=== PATIENT | male | born 1935 | race Two or more races ===

== ENCOUNTER 2016-11-30 13:02 | Inpatient (IN) | payer MEDICARE, BC ==
[2016-11-30 14:45] LABS: Basophils % (A) 1 %; CH 27.4; CHCM 31.6; Eosinophils # (A) 0.1 k/uL (0-0.7); Eosinophils % (A) 2 %; HDW 2.43; Luc # (Auto) 0.08; Luc % (Auto) 2; Lymphocytes # (A) 0.6 k/uL (1.0-4.8); Lymphocytes % (A) 12 %; MCHC 30.9 g/dL (31.0-37.0); MCV 87.3 fL (80.0-100.0); Mean Platelet Volume 8.8; Monocytes # (A) 0.3 k/uL (0-1.0); Monocytes % (A) 6 %; Neutrophils # (A) 3.9 k/uL (1.3-7.7); Neutrophils % (A) 79 %; RBC 4.81 m/uL (4.30-5.90); RDW 14.6 % (11.5-15.5); WBC (Perox) 4.91
[2016-11-30 14:57] LABS: Anion Gap 12 mmol/L; Blood Urea Nitrogen 23 mg/dL (9-20); Carbon Dioxide 27 mmol/L (22-30); Chloride 105 mmol/L (98-107); Glucose 88 mg/dL (74-99); Potassium 4.2 mmol/L (3.5-5.1); Sodium 144 mmol/L (137-145)
[2016-11-30 14:58] LABS: ALT 30 U/L (21-72); AST 28 U/L (17-59); Alkaline Phosphatase 82 U/L (38-126); Calcium 10.4 mg/dL (8.4-10.2); Non-African American GFR(MDRD) >60 (>60 ml/min/1.73 sqM); Total Bilirubin 0.9 mg/dL (0.2-1.3); Total Protein 6.9 g/dL (6.3-8.2)
[2016-11-30 15:50] LABS: Creatine Kinase MB 4.2 ng/mL (0.0-2.4); Troponin I 0.038 ng/mL (0.000-0.034)
[2016-11-30 15:59] LABS: Bacteria,Urine Rare /hpf; Mucus,Urine Few /hpf; Particle Count 111300; RBC,Urine >182 /hpf (0-5); WBC,Urine >182 /hpf (0-5)
[2016-11-30 16:02] LABS: Appearance,Urine Bloody (Clear)
[2016-11-30 16:03] LABS: UA Billing (MACRO vs. MICRO) MICRO
[2016-11-30] MEDS ORDERED: LEVOFLOXACIN 750MG-D5W PMX 750 MG in DEXTROSE/WATER 1 150ML.BAG IVPB STA (16:25)
[2016-11-30] MEDS ORDERED: HYDROcodone/APAP 5-325MG 1 EACH TAB PO PRN (16:33)
[2016-11-30] MEDS ORDERED: NALOXONE 0.4 MG/ML 1 ML VIAL IV PRN (16:33)
[2016-11-30] MEDS ORDERED: ACETAMINOPHEN TAB 325 MG TAB PO PRN (16:33)
--- NOTE | 2016-11-30 16:39 | ED ---
General Adult HPI - General Chief complaint: GI Bleed Stated complaint: Blood in urine Time Seen by Provider: 11/30/16 14:32 Source: family Mode of arrival: wheelchair Limitations: altered mental status (Dementia) - History of Present Illness Initial comments: This patient is an 81-year-old man brought to be evaluated for hematuria. The patient's family states that they started noticing that after the patient had use the bathroom there was blood in the commode. There does not appear to be bloody bowel movements, it did appear to be related to urination. There was an episode in which the patient had a bowel movement however and probably urinated at same time so there was some blood present there. The patient has some underlying dementia and is not able to give any history. He states that he is feeling well Onset/Timin -: hour(s) - Related Data Home Medications Medication Instructions Recorded Confirmed Donepezil [Aricept] 10 mg PO BID 07/25/14 11/30/16 QUEtiapine [SEROquel] 25 mg PO BID 09/13/14 11/30/16 Aspirin 325 mg PO DAILY 11/30/16 11/30/16 Cholecalciferol [Vitamin D3] 1,000 unit PO DAILY 11/30/16 11/30/16 Dronabinol [Marinol] 2.5 mg PO AC-BID 11/30/16 11/30/16 Isosorbide Mononitrate ER [Imdur] 60 mg PO QAM 11/30/16 11/30/16 Mirtazapine [Remeron] 30 mg PO PC-SUPPER 11/30/16 11/30/16 Allergies Allergy/AdvReac Type Severity Reaction Status Date / Time No Known Allergies Allergy Verified 11/30/16 14:15 Review of Systems ROS Statement: Those systems with pertinent positive or pertinent negative responses have been documented in the HPI. ROS Other: All systems not noted in ROS Statement are negative. Limitations: ROS unobtainable due to patients medical condition (Dementia) Constitutional: Denies: fever Respiratory: Denies: cough, dyspnea Cardiovascular: Denies: chest pain, syncope Gastrointestinal: Denies: abdominal pain Genitourinary: Reports: frequency, hematuria Musculoskeletal: Denies: back pain Neurological: Denies: headache Past Medical History Past Medical History: Coronary Artery Disease (CAD), Chest Pain / Angina, Dementia, Diabetes Mellitus, Hyperlipidemia, Hypertension, Renal Disease Additional Past Medical History / Comment(s): PT HX OBTAINED THRU PT/MED RECORD AND DAUGHTER-DANNY BONILLA WHO IS ALSO PT'S POA. PT/HOWARD STATE PT HAD THORACIC BACK PAIN ALL NITE WITH PT AWAKENING HOWARD AT 0300 AT WHICH TIME HE WAS GIVEN A NITRO SL AND HOWARD DROVE HIM TO [facility] ER. EN ROUTE PT STATED NTG HAD HELPED HIS BACK PAIN. HOWARD STATES PT NEVER C/O NAUSEA AND HAD NO SWEATINESS OR DID THE PT STATE PAIN RADIATED. PT LIVES WITH HIS HOWARD DELGADO. HE HAS MILD DEMENTIA. HE HAD TONSIL CANCER TX WITH RADIATION AT [facility] 3-4 YRS AGO. HE HAS CHRONIC RENAL DX. HE HAS THROMBOCYTOPENIA. PT WAS ADMITTED TO [facility] ON 07/25/14 WITH ANGINA. HE IS FOLLOWED BY DR. SIMS AND DR. QUINONES. History of Any Multi-Drug Resistant Organisms: None Reported Past Surgical History: Coronary Bypass/CABG, Heart Catheterization With Stent Additional Past Surgical History / Comment(s): CATARACT REMOVAL 2013. CABG IN APRIL 1995. PTCA WITH STENTING OF MAJOR DIAGONAL IN 2009. Past Anesthesia/Blood Transfusion Reactions: No Reported Reaction Additional Past Anesthesia/Blood Transfusion Reaction / Comment(s): NEVER RECIEVED BLOOD. Date of Last Stent Placement:: 2009 Past Psychological History: No Psychological Hx Reported Additional Psychological History / Comment(s): PT'S MAY 2014 SO PT NOW LIVES WITH HOWARD BONILLA. HE IS ACTIVE AND SPENDS ALOT OF TIME WITH FRIENDS. Smoking Status: Never smoker Past Alcohol Use History: None Reported Past Drug Use History: None Reported - Past Family History Father Family Medical History: No Reported History Additional Family Medical History / Comment(s): FATHER IN HIS 90'S Mother Family Medical History: Dementia Additional Family Medical History / Comment(s): MOTHER IN HER 80'S General Exam General appearance: alert, in no apparent distress Head exam: Present: atraumatic, normocephalic Eye exam: Present: normal appearance. Absent: scleral icterus, conjunctival injection ENT exam: Present: normal oropharynx Neck exam: Present: normal inspection, full ROM Respiratory exam: Present: normal lung sounds bilaterally. Absent: respiratory distress, wheezes, rales, rhonchi, stridor Cardiovascular Exam: Present: regular rate, normal rhythm, normal heart sounds. Absent: systolic murmur, diastolic murmur, rubs, gallop GI/Abdominal exam: Present: soft. Absent: distended, tenderness, guarding, rebound, mass Extremities exam: Present: normal inspection, normal capillary refill. Absent: pedal edema, calf tenderness Back exam: Present: normal inspection. Absent: CVA tenderness (R), CVA tenderness (L) Neurological exam: Present: alert. Absent: oriented X3 Skin exam: Present: warm, dry, intact, normal color. Absent: rash, cyanosis, diaphoretic, erythema, petechiae, pallor, mottled Course Vital Signs 11/30/16 11/30/16 11/30/16 13:44 14:20 17:17 Temperature 98.3 F 97.6 F Pulse Rate 68 61 72 Respiratory 18 16 16 Rate Blood Pressure 118/93 128/84 161/93 O2 Sat by Pulse 96 98 96 Oximetry EKG Findings - EKG Results: EKG: interpreted by ERMD, sinus rhythm - Blocks, [place], Hypertrophy, ST Abn: AV and intraventricular conduction: 1 AV block Repolarization changes or abnormalities: ST or T wave suggestive of ischemia Medical Decision Making - Medical Decision Making This patient is an 81-year-old man with gross hematuria. Patient be covered with antibiotics and admitted. He is pending an ultrasound of the kidneys or bladder. - Lab Data Result diagrams: 11/30/16 14:20 11/30/16 14:20 Lab Results 11/30/16 11/30/16 11/30/16 Range/Units 14:20 14:20 14:20 WBC 5.0 (3.8-10.6) k/uL RBC 4.81 (4.30-5.90) m/uL Hgb 13.0 (13.0-17.5) gm/dL Hct 42.0 (39.0-53.0) % MCV 87.3 (80.0-100.0) fL MCH 27.0 (25.0-35.0) pg MCHC 30.9 L (31.0-37.0) g/dL RDW 14.6 (11.5-15.5) % Plt Count 59 L (150-450) k/uL Neutrophils % 79 % Lymphocytes % 12 % Monocytes % 6 % Eosinophils % 2 % Basophils % 1 % Neutrophils # 3.9 (1.3-7.7) k/uL Lymphocytes # 0.6 L (1.0-4.8) k/uL Monocytes # 0.3 (0-1.0) k/uL Eosinophils # 0.1 (0-0.7) k/uL Basophils # 0.0 (0-0.2) k/uL APTT (22.0-30.0) sec Sodium 144 (137-145) mmol/L Potassium 4.2 (3.5-5.1) mmol/L Chloride 105 (98-107) mmol/L Carbon Dioxide 27 (22-30) mmol/L Anion Gap 12 mmol/L BUN 23 H (9-20) mg/dL Creatinine 1.14 (0.66-1.25) mg/dL Est GFR (MDRD) Af Amer >60 (>60 ml/min/1.73 sqM) Est GFR (MDRD) Non-Af >60 (>60 ml/min/1.73 sqM) Glucose 88 (74-99) mg/dL Calcium 10.4 H (8.4-10.2) mg/dL Total Bilirubin 0.9 (0.2-1.3) mg/dL AST 28 (17-59) U/L ALT 30 (21-72) U/L Alkaline Phosphatase 82 (38-126) U/L Total Creatine Kinase 45 L (55-170) U/L CK-MB (CK-2) 4.2 H* (0.0-2.4) ng/mL CK-MB (CK-2) Rel Index 9.3 Troponin I 0.038 H* (0.000-0.034) ng/mL Total Protein 6.9 (6.3-8.2) g/dL Albumin 3.9 (3.5-5.0) g/dL Urine Color Urine Appearance (Clear) Urine RBC (0-5) /hpf Urine Red Cell Clumps (None) /hpf Urine WBC (0-5) /hpf Urine Bacteria (None) /hpf Urine Mucus (None) /hpf Urine Yeast (Budding) (None) /hpf Blood Type Blood Type Recheck Antibody Screen Spec Expiration Date 11/30/16 11/30/16 11/30/16 Range/Units 14:20 14:20 15:35 WBC (3.8-10.6) k/uL RBC (4.30-5.90) m/uL Hgb (13.0-17.5) gm/dL Hct (39.0-53.0) % MCV (80.0-100.0) fL MCH (25.0-35.0) pg MCHC (31.0-37.0) g/dL RDW (11.5-15.5) % Plt Count (150-450) k/uL Neutrophils % % Lymphocytes % % Monocytes % % Eosinophils % % Basophils % % Neutrophils # (1.3-7.7) k/uL Lymphocytes # (1.0-4.8) k/uL Monocytes # (0-1.0) k/uL Eosinophils # (0-0.7) k/uL Basophils # (0-0.2) k/uL APTT 26.7 (22.0-30.0) sec Sodium (137-145) mmol/L Potassium (3.5-5.1) mmol/L Chloride (98-107) mmol/L Carbon Dioxide (22-30) mmol/L Anion Gap mmol/L BUN (9-20) mg/dL Creatinine (0.66-1.25) mg/dL Est GFR (MDRD) Af Amer (>60 ml/min/1.73 sqM) Est GFR (MDRD) Non-Af (>60 ml/min/1.73 sqM) Glucose (74-99) mg/dL Calcium (8.4-10.2) mg/dL Total Bilirubin (0.2-1.3) mg/dL AST (17-59) U/L ALT (21-72) U/L Alkaline Phosphatase (38-126) U/L Total Creatine Kinase (55-170) U/L CK-MB (CK-2) (0.0-2.4) ng/mL CK-MB (CK-2) Rel Index Troponin I (0.000-0.034) ng/mL Total Protein (6.3-8.2) g/dL Albumin (3.5-5.0) g/dL Urine Color Brown Urine Appearance Bloody (Clear) Urine RBC >182 H (0-5) /hpf Urine Red Cell Clumps Many H (None) /hpf Urine WBC >182 H (0-5) /hpf Urine Bacteria Rare H (None) /hpf Urine Mucus Few H (None) /hpf Urine Yeast (Budding) Many H (None) /hpf Blood Type O Positive Blood Type Recheck No Antibody Screen NEGATIVE Spec Expiration Date 12/03/20162319 Disposition Clinical Impression: Hematuria, Urinary tract infection Disposition: ADMITTED IP TO THIS HOSP Condition: Poor
[2016-11-30] MEDS: SODIUM CHLORIDE 0.9% 1,000 ML IV SCH (17:16)
[2016-11-30] MEDS ORDERED: DRONABINOL 2.5 MG CAPSULE PO SCH (17:30)
--- NOTE | 2016-11-30 18:05 | US ---
EXAMINATION TYPE: US kidneys/renal and bladder DATE OF EXAM: 11/30/2016 5:40 PM COMPARISON: NONE CLINICAL HISTORY: gross hematuria, UTI. EXAM MEASUREMENTS: Right Kidney: 9.9 x 5.0 x 4.1cm Left Kidney: 9.1 x 7.9 x 4.6cm Post Void Residual Volume: NA as EC patient ANATOMY: TECHNOLOGIST IMPRESSION: Right Kidney: No hydronephrosis or masses seen Left Kidney: superior pole has possible complex cyst (posterior enhancement) = 1.8 x 1.7 x 2.3cm. Abn ormally dilated renal pelvis and ureter with hyperechoic focus (calcification) mid ureter = 0.6 x 0.6 x 0.3cm Bladder: enlarged prostate noted posterior to bladder Bilateral Jets seen: yes IMPRESSION: There is moderate left-sided hydronephrosis and proximal hydroureter. There is a possible 5 mm calcul us in the proximal left ureter. No evidence of obstruction on the right side. No solid renal mass. Th ere is a 2 cm cortical cyst on the upper pole left kidney. Bilateral ureteral jets are seen in the ur inary bladder and therefore I do not suspect acute obstruction. There is also no significant renal co rtical atrophy.
[2016-11-30] MEDS: MIRTAZAPINE 15 MG TAB PO SCH (20:36)
[2016-11-30] MEDS ORDERED: QUEtiapine 25 MG TAB PO SCH (21:00)
[2016-11-30] MEDS ORDERED: DONEPEZIL 10 MG TAB PO SCH (21:00)
[2016-12-01 06:09] LABS: Basophils % (A) 0 %; CH 27.6; CHCM 31.9; Eosinophils % (A) 0 %; HCT 38.7 % (39.0-53.0); HDW 2.43; HGB 11.8 gm/dL (13.0-17.5); Luc # (Auto) 0.09; Luc % (Auto) 1; Lymphocytes # (A) 0.5 k/uL (1.0-4.8); Lymphocytes % (A) 5 %; MCH 26.5 pg (25.0-35.0); MCHC 30.5 g/dL (31.0-37.0); MCV 86.8 fL (80.0-100.0); Mean Platelet Volume 8.2; Monocytes # (A) 0.4 k/uL (0-1.0); Monocytes % (A) 4 %; Neutrophils # (A) 8.8 k/uL (1.3-7.7); Neutrophils % (A) 89 %; RBC 4.46 m/uL (4.30-5.90); RDW 14.7 % (11.5-15.5); WBC 9.8 k/uL (3.8-10.6); WBC (Perox) 10.36
[2016-12-01 06:14] LABS: ALT 32 U/L (21-72); AST 23 U/L (17-59); Alkaline Phosphatase 65 U/L (38-126); Anion Gap 11 mmol/L; Blood Urea Nitrogen 20 mg/dL (9-20); Calcium 9.7 mg/dL (8.4-10.2); Carbon Dioxide 24 mmol/L (22-30); Chloride 107 mmol/L (98-107); Glucose 88 mg/dL (74-99); Non-African American GFR(MDRD) >60 (>60 ml/min/1.73 sqM); Potassium 4.4 mmol/L (3.5-5.1); Sodium 142 mmol/L (137-145); Total Bilirubin 0.9 mg/dL (0.2-1.3)
[2016-12-01] MEDS: DRONABINOL 2.5 MG CAP PO SCH ×2 (06:51→17:00)
[2016-12-01] MEDS: SODIUM CHLORIDE 0.9% 1,000 ML IV SCH ×4 (06:57→21:20)
[2016-12-01] MEDS: DONEPEZIL 10 MG TAB PO SCH (08:59)
[2016-12-01] MEDS: CHOLECALCIFEROL 1,000 UNIT TAB PO SCH (08:59)
[2016-12-01] MEDS: ISOSORBIDE MONONITRATE ER 60 MG TAB.ER.24H PO SCH (11:14)
[2016-12-01] MEDS: PANTOPRAZOLE 40 MG TABLET PO SCH (14:14)
--- NOTE | 2016-12-01 16:38 | HP ---
DATE OF ADMISSION: 11/30/2016 PRESENTING COMPLAINT: Weak, tired, hematuria. HISTORY OF PRESENTING COMPLAINT: An 81-year-old patient of Dr. 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 The patient does get pain in his throat, was recently seen by Dr. Amaya per the family. The 2 daughters at the bedside. Nothing really was found. Patient now admitted. Patient's appetite is gone down, losing weight. Patient also noticed to have blood in the stool and blood in his urine. The patient pretty much likes to be in bed, has to be motivated. Most of the history is obtained by the 2 daughters at the bedside. Here in the hospital, the patient states actually he likes the food. REVIEW OF SYSTEMS: CONSTITUTIONAL: Loss of appetite. Weight loss. HEENT: Decreased hearing. RESPIRATORY: None. CARDIOVASCULAR: No chest pain. GASTROINTESTINAL: No abdominal pain, but some blood in the stool. DERMATOLOGICAL: None. HEMATOLOGICAL: None. LYMPHATICS: None. PSYCHIATRY: Forgetful. NEUROLOGICAL: Generalized weakness. GENITOURINARY: Blood in the urine. Past medical history of coronary artery disease with bypass, stent, dementia, hyperlipidemia, hypertension, ITP, tonsillar cancer. PAST SURGICAL HISTORY: Coronary artery bypass, cardiac cath with stent, CABG in 1994, PTCA with stent to the diagonal in 2009. SOCIAL HISTORY: The patient is a . Lives with daughter Kim Baumann. No smoking. No alcohol. FAMILY HISTORY: Reviewed, noncontributory to the presentation. HOME MEDICATIONS: 1. Seroquel 25 mg q.h.s. 2. Zocor 20 mg q.h.s. 3. Aricept 10 mg p.o. daily. 4. Vitamin D3, 1000 units p.o. daily. 5. Aspirin 325 p.o. daily. 6. Imdur ER 60 mg p.o. daily. 7. Marinol 2.5 p.o. b.i.d. 8. Remeron 30 mg before supper. ALLERGIES: None. On examination, temperature 97.6, pulse 72, respirations 16, blood pressure 161/93, pulse ox 96% on room air. GENERAL APPEARANCE: Average build, sitting up, awake. EYES: Pupils equal. Conjunctivae pale. HEENT: External appearance of nose and ears normal. Oral cavity normal. NECK: JVD not raised. Mass not palpable. RESPIRATORY: Effort normal. LUNGS: Slightly decreased breath sounds. CARDIOVASCULAR: First and second sounds normal. No edema. ABDOMEN: Soft, nontender. Liver and spleen not palpable. LYMPHATIC: No lymph node palpable in neck or axillae. PSYCHIATRY: Awake, answering simple questions. Mood and affect normal. NEUROLOGICAL: Pupils equal. Cranial nerves grossly intact. MUSCULOSKELETAL: Evidence of osteoarthritis. INVESTIGATIONS: White count 5, hemoglobin 13, platelets 59. Potassium 4.2, BUN 23, creatinine 1.14. Troponin 0.038, 0.043. UA showing quite a bit of WBC and RBC. ASSESSMENT: 1. Hematuria in a patient who has a questionable history of kidney stones. May have underlying urinary tract infection. 2. Gastrointestinal bleed in a patient who is on a heavy dose of aspirin and low platelets, could be an upper gastrointestinal bleed. 3. Coronary artery disease with prior history of stent and CABG. 4. Alzheimer's dementia, late onset, no evidence of psychosis. 5. Hyperlipidemia. 6. Essential hypertension. 7. Chronic idiopathic thrombocytopenic purpura. 8. Troponin leak. PLAN: Patient is put on Levaquin. Home medications are resumed. Aspirin has been held. I will put the patient on PPI. Will get a consultation from GI and Urology. Care was discussed in detail with the 2 daughters at the bedside.
[2016-12-01] MEDS: LEVOFLOXACIN 500MG-D5W PMX 500 MG in DEXTROSE/WATER 1 100ML.BAG IVPB SCH (16:59)
--- NOTE | 2016-12-01 17:07 | HP ---
DATE OF ADMISSION: 11/30/2016 PRESENTING COMPLAINT: Short of breath. HISTORY OF PRESENTING COMPLAINT: This is pleasant 81-year-old patient who was transferred here from [facility] by Dr. Puente. Patient has rather extensive medical history. Patient 2 weeks ago presented to the ER there, diagnosed with pneumonia and prerenal azotemia. Patient was put on doxycycline and discharged from the ER. Patient presented with a cough. Some sputum production going on for 2 to 3 weeks. Decreased appetite, weight loss. Hence, the patient was admitted. Patient was found to have right sided pleural effusion that was worsening; hence patient being transferred down here. There is also some blood in the stools. Patient did undergo EGD, found to have some GERD. Colonoscopy was not done. Patient's other chronic stable medical conditions include atrial fibrillation, osteoarthritis, COPD, adenocarcinoma of the prostate, cancer not for treatment and obstructive sleep apnea, peripheral artery disease, diverticulosis, also known history of coronary artery disease. The patient also found to have electrolyte abnormalities; hence, he was sent down here. REVIEW OF SYSTEMS: CONSTITUTIONAL: Weak and tired. HEENT: Poor vision in left eye from prior stroke. RESPIRATORY: Shortness of breath. Some cough. Some sputum production. CARDIOVASCULAR: No chest pain. GASTROINTESTINAL: Some Hemoccult positive. GENITOURINARY: None. MUSCULOSKELETAL: Pain in the joints. Dermatological: None. HEMATOLOGICAL: None. LYMPHATICS: None. PSYCHIATRY: Slightly forgetful. NEUROLOGICAL: None. Past history of recent pneumonia, atrial fibrillation, stroke, hypertension, hyperlipidemia, COPD, nephrectomy for renal cell cancer, left eye poor vision from stroke. Vitamin D deficiency. Obstructive sleep apnea does not use CPAP machine. Peripheral artery disease, diverticulosis, anemia, and permanent pacemaker. PAST SURGICAL HISTORY: Bilateral shoulder replacement, basal cell carcinoma, permanent pacemaker. FAMILY HISTORY: Father had kidney cancer and hypertension, mother had kidney cancer and heart disease. Sister had breast cancer. 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 Still smokes a pack a day. No alcohol. HOME MEDICATIONS: 1. CoQ10 100 mg p.o. daily. 2. Hytrin 5 mg q.h.s. 3. Xarelto 50 mg p.o. daily. 4. Ramipril 10 mg p.o. daily. 5. Zofran 4 mg q.8 p.r.n. 6. Bystolic 5 mg p.o. daily. 7. Magnesium 400 mg p.o. daily. 8. Duoneb q.6h. 9. [place] 7.5 1 tablets b.i.d. p.r.n. 10. Lasix 20 mg a day. 11. Pepcid 20 mg q.h.s. 12. Zetia 10 mg p.o. daily. 13. Vitamin B12 1000 mcg p.o. daily. 14. Vitamin D3, 2000 units p.o. daily. 15. Symbicort 160/4.5, 2 puffs b.i.d. 16. Baclofen 10 mg p.o. t.i.d. 17. Lipitor 40 mg p.o. daily. 18. Ventolin 1 puff q.i.d. ALLERGIES: None. On examination, temperature 97.1, pulse 71, respiratory rate 18, blood pressure 100/55, pulse ox 97% on room air. GENERAL APPEARANCE: Well built, lying in bed, tired appearing. EYES: Pupils equal. Conjunctivae normal. HEENT: External appearance of nose and ears normal. NECK: JVD not raised. Mass not palpable. RESPIRATORY: Effort increased. LUNGS: Diminished breath sounds, some wheezing. CARDIOVASCULAR: First and second sounds normal. No edema. ABDOMEN: Distended, soft. Liver and spleen not palpable. LYMPHATIC: No lymph nodes palpable in the neck and axilla. PSYCHIATRY: Awake, answering simple questions. NEUROLOGICAL: Pupils equal. Cranial nerves grossly intact. Power and sensation grossly intact. MUSCULOSKELETAL: Evidence of osteoarthritis of multiple joints. INVESTIGATIONS: White count 8.2, hemoglobin 8.4. Potassium 4.6, BUN 24, creatinine 1.39. Patient's BUN/creatinine was 24/1.4 at the other hospital with creatinine 4.5, hemoglobin was 8.3. CT scan of the chest added ( ) already showed moderate right sided pleural effusion with consolidation, also chronic obstructive pulmonary disease and some pulmonary nodules are noted. Chest x-ray shows some venous prominence. ASSESSMENT: 1. Right lower lobe pneumonia with associated parapneumonic effusion, slow to respond. 2. History of atrial fibrillation. 3. Osteoarthritis of multiple joints, bilateral. 4. Chronic obstructive pulmonary disease in a current smoker. 5. Chronic nicotine dependence. Patient is smoker. 6. Adenocarcinoma of the prostate not a candidate for surgery. 7. History of nephrectomy for renal cell carcinoma. 8. 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 9. Vitamin D deficiency. 10. Peripheral artery disease in a smoker. 11. Chronic colonic diverticulosis. 12. 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 13. Coronary artery disease PLAN: Pulmonary was consulted. Patient is put on IV ceftriaxone. Home medications are resumed. Gastroenterology will be consulted because of occult blood. Patient did have EGD at the other hospital that showed some GERD. Care was discussed in detail with the patient's family at the bedside. The patient was also given a nicotine patch. Overall prognosis is guarded.
--- NOTE | 2016-12-01 17:18 | P.GSCN ---
History of Present Illness Consult date: 12/01/16 Reason for Consult: Hematuria Requesting physician: Wyatt Watts History of present illness: He is a 81-year-old male well known to me. He has no family history of prostate cancer. Prostate biopsies in 2010 were negative. The prostate volume was 121 cc. His most recent PSA level was 11.4 in 2014. He has a history of microhematuria. Urine cytology was negative. However, a renal ultrasound showed evidence of left hydronephrosis. In view of this, he underwent cystoscopy with retrograde pyelograms in 2011, revealing BPH to be the likely etiology of his hydronephrosis and microhematuria. He developed postoperative urinary retention , which resolved. He was last seen in July 2015 and failed his appointment in 2015. The patient is now admitted with hematuria. He denies pain. He is a vague historian, unable to provide any meaningful history, likely due to his underlying dementia. He denies flank pain. Review of Systems - Constitutional Denies fever - Genitourinary Reports hematuria Past Medical History Past Medical History: Coronary Artery Disease (CAD), Chest Pain / Angina, Dementia, Diabetes Mellitus, Hyperlipidemia, Hypertension, Renal Disease Additional Past Medical History / Comment(s): 11/30/16 c/o blood in urine, "DECREASED APPETITE WT DOWN FROM 163 TO 111 IN APPROX 3-4 MONTHS AND HOWARD HADDAD STATED HE SEEMS TO HAVE SOME DIFFICULTY SWALLOWING AT TIMES /CHOKES SOMETIMES WITH MEDS OR FOOD" ."FUNGAL INFECTION TOES" other hx includes:PT HX OBTAINED THRU PT/MED RECORD AND DAUGHTER-DANNY BONILLA WHO IS ALSO PT'S POA. HAS DEMENTIA. 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 HE HAS CHRONIC RENAL DX. HE HAS THROMBOCYTOPENIA. PT WAS ADMITTED [facility] ON 07/25/14 WITH ANGINA. HE IS FOLLOWED BY DR. SIMS AND DR. QUINONES. History of Any Multi-Drug Resistant Organisms: None Reported Past Surgical History: Coronary Bypass/CABG, Heart Catheterization With Stent Additional Past Surgical History / Comment(s): CATARACT REMOVAL 2013. CABG IN APRIL 1995. PTCA WITH STENTING OF MAJOR DIAGONAL IN 2009. Past Anesthesia/Blood Transfusion Reactions: No Reported Reaction Additional Past Anesthesia/Blood Transfusion Reaction / Comm: NEVER RECIEVED BLOOD. Date of Last Stent Placement:: 2009 Past Psychological History: No Psychological Hx Reported Additional Psychological History / Comment(s): PT'S MAY 2014 SO PT NOW LIVES WITH HOWARD BONILLA. NEEDS ASITANCE WHEN UP. AT NIGHT IF HE WAKES UP HE MAY GET SCARED BECAUSE HE FORGETS WHERE HE IS"(DEMENTIA) Smoking Status: Never smoker Past Alcohol Use History: None Reported Past Drug Use History: None Reported - Past Family History Father Family Medical History: No Reported History Additional Family Medical History / Comment(s): FATHER IN HIS 90'S Mother Family Medical History: Dementia Additional Family Medical History / Comment(s): MOTHER IN HER 80'S Medications and Allergies Home Medications Medication Instructions Recorded Confirmed Type Donepezil [Aricept] 10 mg PO DAILY 07/25/14 11/30/16 History QUEtiapine [SEROquel] 25 mg PO HS 09/13/14 11/30/16 History Aspirin 325 mg PO DAILY 11/30/16 11/30/16 History Cholecalciferol [Vitamin D3] 1,000 unit PO DAILY 11/30/16 11/30/16 History Dronabinol [Marinol] 2.5 mg PO AC-BID 11/30/16 11/30/16 History Isosorbide Mononitrate ER [Imdur] 60 mg PO QAM 11/30/16 11/30/16 History Mirtazapine [Remeron] 30 mg PO PC-SUPPER 11/30/16 11/30/16 History Simvastatin [Zocor] 20 mg PO HS 11/30/16 11/30/16 History Allergies Allergy/AdvReac Type Severity Reaction Status Date / Time No Known Allergies Allergy Verified 11/30/16 14:15 Surgical - Exam Vital Signs Temp Pulse Resp BP Pulse Ox 98.3 F 68 18 118/93 96 11/30/16 13:44 11/30/16 13:44 11/30/16 13:44 11/30/16 13:44 11/30/16 13:44 - General no distress, cachectic - Respiratory normal respiratory effort - Abdomen Abdomen: soft, non tender, no guarding, no rigid, no rebound - Genitourinary normal penis with no external lesions, testicles present Results - Labs 12/01/16 05:42 12/01/16 05:42 Abnormal Lab Results - Last 24 Hours (Table) 11/30/16 11/30/16 12/01/16 Range/Units 17:48 20:24 05:42 Hgb 11.8 L (13.0-17.5) gm/dL Hct 38.7 L (39.0-53.0) % MCHC 30.5 L (31.0-37.0) g/dL Plt Count 59 L (150-450) k/uL Neutrophils # 8.8 H (1.3-7.7) k/uL Lymphocytes # 0.5 L (1.0-4.8) k/uL Plasma Lactic Acid Alexandre 2.7 H* (0.7-2.0) mmol/L Troponin I 0.043 H* (0.000-0.034) ng/mL Total Protein (6.3-8.2) g/dL Albumin (3.5-5.0) g/dL 12/01/16 Range/Units 05:42 Hgb (13.0-17.5) gm/dL Hct (39.0-53.0) % MCHC (31.0-37.0) g/dL Plt Count (150-450) k/uL Neutrophils # (1.3-7.7) k/uL Lymphocytes # (1.0-4.8) k/uL Plasma Lactic Acid Alexandre (0.7-2.0) mmol/L Troponin I (0.000-0.034) ng/mL Total Protein 6.0 L (6.3-8.2) g/dL Albumin 3.2 L (3.5-5.0) g/dL Diabetes panel 12/01/16 Range/Units 05:42 Sodium 142 (137-145) mmol/L Potassium 4.4 (3.5-5.1) mmol/L Chloride 107 (98-107) mmol/L Carbon Dioxide 24 (22-30) mmol/L BUN 20 (9-20) mg/dL Creatinine 0.95 (0.66-1.25) mg/dL Glucose 88 (74-99) mg/dL Calcium 9.7 (8.4-10.2) mg/dL AST 23 (17-59) U/L ALT 32 (21-72) U/L Alkaline Phosphatase 65 (38-126) U/L Total Protein 6.0 L (6.3-8.2) g/dL Albumin 3.2 L (3.5-5.0) g/dL Calcium panel 12/01/16 Range/Units 05:42 Calcium 9.7 (8.4-10.2) mg/dL Albumin 3.2 L (3.5-5.0) g/dL Pituitary panel 12/01/16 Range/Units 05:42 Sodium 142 (137-145) mmol/L Potassium 4.4 (3.5-5.1) mmol/L Chloride 107 (98-107) mmol/L Carbon Dioxide 24 (22-30) mmol/L BUN 20 (9-20) mg/dL Creatinine 0.95 (0.66-1.25) mg/dL Glucose 88 (74-99) mg/dL Calcium 9.7 (8.4-10.2) mg/dL Adrenal panel 12/01/16 Range/Units 05:42 Sodium 142 (137-145) mmol/L Potassium 4.4 (3.5-5.1) mmol/L Chloride 107 (98-107) mmol/L Carbon Dioxide 24 (22-30) mmol/L BUN 20 (9-20) mg/dL Creatinine 0.95 (0.66-1.25) mg/dL Glucose 88 (74-99) mg/dL Calcium 9.7 (8.4-10.2) mg/dL Total Bilirubin 0.9 (0.2-1.3) mg/dL AST 23 (17-59) U/L ALT 32 (21-72) U/L Alkaline Phosphatase 65 (38-126) U/L Total Protein 6.0 L (6.3-8.2) g/dL Albumin 3.2 L (3.5-5.0) g/dL Assessment and Plan (1) Hematuria Status: Acute Plan: The patient is an 81-year-old male with gross hematuria. Renal ultrasound has shown evidence of left hydronephrosis, possibly due to a ureteral calculus. However, he has a known history of left hydronephrosis (non-obstructing). A KUB x-ray will be obtained. Ultimately, a computed tomography scan may be required. Urinalysis is suggestive of a UTI, so I have ordered a urine culture. In the meantime, he will continue to receive Levaquin.
[2016-12-01] MEDS: MIRTAZAPINE 15 MG TAB PO SCH (18:13)
--- NOTE | 2016-12-01 19:36 | XR ---
EXAMINATION TYPE: XR KUB DATE OF EXAM: 12/01/2016 6:06 PM COMPARISON: 03/14/2014 HISTORY: 81-year-old male hydronephrosis FINDINGS: Supine imaging limited for assessment of free air. Suspect numerous clustered gallstones in the right upper quadrant. Gassy abdomen without abnormal sma ll bowel dilatation seen. Bowel gas largely obscures the renal shadows. A 6 mm calcification in the l eft paramedian mid abdomen could represent a left renal calculus. IMPRESSION: 1. Gassy abdomen limiting evaluation for renal calculi. 2. Possible 6 mm left renal calculus. 3. Suspect numerous clustered gallstones in the right upper quadrant.
[2016-12-01] MEDS: QUEtiapine 25 MG TAB PO SCH (21:19)
[2016-12-01] MEDS: ATORVASTATIN 10 MG TAB PO SCH (21:19)
[2016-12-02] MEDS: DRONABINOL 2.5 MG CAP PO SCH ×2 (07:02→16:56)
[2016-12-02] MEDS: PANTOPRAZOLE 40 MG TABLET PO SCH (07:02)
[2016-12-02] MEDS: ISOSORBIDE MONONITRATE ER 60 MG TAB.ER.24H PO SCH (08:01)
[2016-12-02] MEDS: DONEPEZIL 10 MG TAB PO SCH (08:01)
[2016-12-02] MEDS: CHOLECALCIFEROL 1,000 UNIT TAB PO SCH (08:01)
[2016-12-02] MEDS: SODIUM CHLORIDE 0.9% 1,000 ML IV SCH ×2 (08:01→16:56)
--- NOTE | 2016-12-02 11:39 | CONS ---
DATE OF CONSULTATION: 12/02/2016 REASON FOR CONSULTATION: GI bleed. HISTORY OF PRESENT ILLNESS: Patient is an 81-year-old white male who was admitted to the hospital because of weakness, tiredness, and hematuria on and off for the last few days duration. The patient is an extremely poor historian and no family available at the bedside. Most of the history was obtained from the nursing staff caring for him and from the chart review. Apparently, he was having some issues with pain in his throat, so he went to see Dr. Amaya a couple of weeks ago and had some work-up done that was negative. In the meantime, he also started noticing some blood in the urine and he was evaluated by Dr. Babin. Presently, he denies any abdominal pain. He reports no nausea or vomiting. In fact, he is having his breakfast as I am talking to the patient and tolerating well. He reports no rectal bleeding. He denies any melena. He does not ever recall having any endoscopic work-up in the past but patient is somewhat a poor historian. 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 Home medications are Seroquel, Zocor, Aricept, vitamin D3, aspirin, Imdur, Marinol, Remeron. PAST SURGICAL HISTORY: CABG in 1994 and cardiac cath after that. ALLERGIES: None. SOCIAL HISTORY: No smoking. No alcohol use. FAMILY HISTORY: Unremarkable. REVIEW OF SYSTEMS: CARDIOPULMONARY: He denies any chest pain or shortness of breath. GENITOURINARY: He did have some hematuria and apparently no hematuria since being in the hospital. NEUROLOGY: Unremarkable other than dementia. PSYCHIATRIC: Unremarkable. ENT: Vision unremarkable. CONSTITUTIONAL: Apparently he did lose some weight, but patient does not recall as to how much he lost. HEMATOLOGY: Unremarkable. ENDOCRINE: Unremarkable. PSYCHIATRIC: Unremarkable. MUSCULOSKELETAL: Unremarkable. On physical examination, he appears comfortable, in no apparent distress. Vitals signs are stable. Blood pressure is 125/73, pulse is 79, temperature 96. HEENT EXAMINATION: Unremarkable. Conjunctivae pink. Sclerae nonicteric. Oral cavity no lesions. NECK: No JVD or lymph node enlargement. Chest was clear to auscultation. HEART: Regular rate and rhythm. Abdomen is soft. It was nontender, nondistended. Liver and spleen are not palpable. Bowel sounds are positive. No organomegaly. EXTREMITIES: No pedal edema. SKIN: No rashes. NEURO: Alert and oriented x3. No focal deficits. Labs at the time of admission to the hospital: WBC is 5. Hemoglobin 13, today it is 11.8, platelets are 59,000. BUN and creatinine are 23 and 1.1 respectively. ALT, AST, T-bili, alk phos are within normal limits. Urine analysis showed gross hematuria. IMPRESSION: This is an 81-year-old male admitted to the hospital with fatigue, weakness, weight loss, gross hematuria for which Dr. Babin has been consulted and presently undergoing work-up, but apparently he did have some rectal bleeding also; however, since being in the hospital, patient did not have any obvious rectal bleeding as per the nursing staff. He did drop his hemoglobin from 13 to 11.8 g/dL. It is unclear whether he ever had any endoscopic intervention in the past, but since there is no active ongoing bleeding involving the entire digestive system. I would not recommend any further endoscopic work-up at the present time. However, I will follow the patient closely during his hospital stay. Thank you for this consultation.
--- NOTE | 2016-12-02 13:35 | P.PN ---
Progress Note - Text Mr. Long is accompanied by his daughter. His only complaint is a sore throat. He denies flank pain. The KUB x-ray does indeed show a calcification in the region of the left renal pelvis. It is unclear where the calculus is, and whether it is causing obstruction. For this reason, a computed tomography scan will be ordered for further evaluation. A urine culture is pending.
[2016-12-02] MEDS ORDERED: RX INFO: IV CONTRAST WAS GIVEN 1 EACH MISC MISCELLANE PRN ×2 (13:37→14:12)
[2016-12-02] MEDS ORDERED: BENZOCAINE/MENTHOL LOZENG 1 EACH LOZENGE MUCOUS MEM PRN (13:39)
[2016-12-02] MEDS ORDERED: IOHEXOL 350 MG/ML 25 ML BOTTLE (ORAL USE) PO PRN (14:12)
[2016-12-02 15:38] VITALS: RESP 16
[2016-12-02] MEDS: IOHEXOL 350 MG/ML 25 ML BOTTLE (ORAL USE) PO PRN ×2 (15:49→16:55)
[2016-12-02] MEDS: LEVOFLOXACIN 500MG-D5W PMX 500 MG in DEXTROSE/WATER 1 100ML.BAG IVPB SCH (16:52)
[2016-12-02] MEDS: MIRTAZAPINE 15 MG TAB PO SCH (16:54)
--- NOTE | 2016-12-02 18:53 | CT ---
EXAMINATION TYPE: CT abdomen pelvis wo con DATE OF EXAM: 12/02/2016 6:22 PM COMPARISON: NONE HISTORY: history of tonsilar cancer. Generalized pain. CT DLP: 643.7 mGycm Automated exposure control for dose reduction was used. TECHNIQUE: Multiple axial sections were obtained from the diaphragm to the floor the pelvis with no contrast. FINDINGS: There is some patchy pneumonic infiltrate in the left lower lobe. There is oral contrast in the stomach and bowel. There are numerous calcified gallstones. Bile ducts are not dilated. Spleen shows no focal defect. There is no sign of a pancreatic mass. There is no ret roperitoneal adenopathy. There is no adrenal mass. There is a dilated left renal pelvis but no signif icant enlargement of the calyces. Ureters are not dilated. There is no retroperitoneal adenopathy. Bl adder distends smoothly. There is a markedly enlarged prostate gland. This measures 7.5 cm in diamete r. There is no sign of a hernia. There is no pelvic lymphadenopathy. I see no intestinal wall thicken ing. There is no ascites. IMPRESSION: THERE IS A LARGE LEFT RENAL PELVIS THAT COULD RELATE TO A URETERAL PELVIC JUNCTION OBSTRUCTION OR LAR GE PARAPELVIC CYST. MARKEDLY ENLARGED PROSTATE GLAND.. MULTIPLE CALCIFIED GALLSTONES. NO SIGN OF ACUT E ABDOMEN AND PELVIS. THERE IS PROBABLY SOME SPINAL STENOSIS AT L4-5 RELATED TO A DEGENERATIVE FIRST- DEGREE SPONDYLOLISTHESIS. PATCHY PNEUMONIC INFILTRATE IN THE LEFT LOWER LOBE.
--- NOTE | 2016-12-02 18:59 | CT ---
EXAMINATION TYPE: CT ChestAbdPelvis w con DATE OF EXAM: 12/02/2016 6:22 PM COMPARISON: NONE HISTORY: history of tonsilar cancer. Generalized pain CT DLP: 647.3 mGycm Automated exposure control for dose reduction was used. CONTRAST: CT scan of the chest, abdomen and pelvis is performed with Oral Contrast and with IV Contrast, patien t injected with 100 mL of Omnipaque 300. FINDINGS: There is a patchy infiltrate in the left lower lobe. The other lung smith are clear. There is no med iastinal adenopathy. There are no hilar masses. There is coronary artery calcification. Heart size is normal. Liver and spleen pancreas appear normal. Bile ducts are not dilated. There are numerous calcified gal lstones. There is a 5 cm rounded fluid area at the left renal pelvis that could be a large parapelvic cyst or related to ureteropelvic junction obstruction. I do not see any significant renal atrophy. There is no evidence of a bowel obstruction. There is no retroperitoneal adenopathy. There is no mese nteric adenopathy. Bladder distends fairly smoothly. There is an enlarged prostate gland. Appendix is not seen. There is no sign of appendicitis. There is a degenerative first-degree L4-5 spondylolisthesis with L4-5 bony spinal stenosis. I see no focal bone destruction. IMPRESSION: Large left renal parapelvic cyst or dilated renal pelvis. No evidence of a solid renal ma ss. 1 cm right renal cortical cyst noted. Left lower lobe patchy pneumonic infiltrate. Atherosclerotic vascular disease. Cholelithiasis. Enlarged prostate gland. I see no evidence of metastatic disease in this patient with a history of tonsil cancer.
--- NOTE | 2016-12-02 19:13 | PN ---
DATE OF SERVICE: 12/02/2016 PRESENTING COMPLAINT: Weak, tired, loss of appetite, hematuria. INTERVAL HISTORY: This is a patient who presented with hematuria, who has a left hydronephrosis and possibly left ureteral stone. Also seen by Dr. Marianna Foley, not for any further work-up per her. Daughter is at bedside. Patient is sitting up, comfortable, no abdominal pain. Review of systems done for constitutional, cardiovascular, GI, pulmonary; relevant findings as above. Current medications are reviewed that include IV Levaquin for the UTI. On examination, temperature 97.1, pulse 76, respiration 18, blood pressure 108/69, pulse ox 93% on room air. GENERAL APPEARANCE: Sitting up, comfortable. EYES: Pupils equal, conjunctivae are pale. NECK: JVD not raised. Mass not palpable. Respiratory effort normal. LUNGS: Slightly decreased breath sounds. CARDIOVASCULAR: First and second sounds normal. No edema. ABDOMEN: Soft, nontender. Liver and spleen not palpable. PSYCHIATRY: Awake, answering questions. INVESTIGATIONS: White count 9.8, hemoglobin 11.8. Urine culture pending. ASSESSMENT: 1. Hematuria, possibly from the left ureteral stone causing left hydronephrosis. 2. Coronary artery disease with prior history of stent and coronary artery bypass grafting. 3. Alzheimer's dementia, late onset, no evidence of psychosis. 4. Hyperlipidemia. 5. Essential hypertension. 6. Chronic idiopathic thrombocytopenic purpura. 7. Troponin leak. 8. Questionable history of gastrointestinal bleed. 9. Weight loss, loss of appetite, ( ). PLAN: Will do a CT scan of the chest, abdomen and pelvis with contrast, repeat a CBC in the morning. Care was discussed with the daughter at the site bedside. The patient also getting IV fluids.
[2016-12-02] MEDS: QUEtiapine 25 MG TAB PO SCH (22:32)
[2016-12-02] MEDS: ATORVASTATIN 10 MG TAB PO SCH (22:33)
[2016-12-03] MEDS: SODIUM CHLORIDE 0.9% 1,000 ML IV SCH (05:51)
[2016-12-03 07:44] LABS: Basophils % (A) 0 %; CH 27.2; CHCM 31.2; Eosinophils % (A) 1 %; HCT 38.6 % (39.0-53.0); HDW 2.42; Hypochromasia Slight; Luc # (Auto) 0.09; Luc % (Auto) 2; Lymphocytes # (A) 0.5 k/uL (1.0-4.8); Lymphocytes % (A) 8 %; MCH 27.4 pg (25.0-35.0); MCHC 31.2 g/dL (31.0-37.0); MCV 87.8 fL (80.0-100.0); Monocytes # (A) 0.3 k/uL (0-1.0); Monocytes % (A) 6 %; Neutrophils # (A) 4.7 k/uL (1.3-7.7); Neutrophils % (A) 84 %; RDW 14.5 % (11.5-15.5); WBC 5.6 k/uL (3.8-10.6); WBC (Perox) 5.51
--- NOTE | 2016-12-03 09:35 | P.PN ---
Progress Note - Text Mr. Long denies flank pain. He remains afebrile. I reviewed the computed tomography scan. The left kidney shows evidence of a large extrarenal pelvis or a left parapelvic renal cyst. A small nonobstructing midpole renal calculus is also noted. His urine culture is pending. I would suggest he continue to receive antibiotics, pending the urine culture result. I do not feel that any further urologic evaluation is warranted during this hospitalization. I have suggested he undergo outpatient cystoscopy to complete his evaluation. Arrangements will be made for this. Please notify me if I can be of any further assistance.
[2016-12-03] MEDS: ISOSORBIDE MONONITRATE ER 60 MG TAB.ER.24H PO SCH (10:04)
[2016-12-03] MEDS: PANTOPRAZOLE 40 MG TABLET PO SCH (10:04)
[2016-12-03] MEDS: CHOLECALCIFEROL 1,000 UNIT TAB PO SCH (10:05)
[2016-12-03] MEDS: DONEPEZIL 10 MG TAB PO SCH (10:05)
[2016-12-03] MEDS: DRONABINOL 2.5 MG CAP PO SCH ×2 (10:57→18:18)
[2016-12-03] MEDS: LEVOFLOXACIN 500MG-D5W PMX 500 MG in DEXTROSE/WATER 1 100ML.BAG IVPB SCH (18:16)
[2016-12-03] MEDS: MIRTAZAPINE 15 MG TAB PO SCH (18:16)
[2016-12-03] MEDS ORDERED: TAMSULOSIN 0.4 MG CAP.ER.24H PO SCH (20:30)
[2016-12-04] MEDS: SODIUM CHLORIDE 0.9% 1,000 ML IV SCH ×3 (00:03→10:53)
[2016-12-04] MEDS: QUEtiapine 25 MG TAB PO SCH (00:04)
[2016-12-04] MEDS: ATORVASTATIN 10 MG TAB PO SCH (00:04)
--- NOTE | 2016-12-04 07:52 | PN ---
DATE OF SERVICE: 12/03/2016 PRESENTING COMPLAINT: Tired, hematuria. INTERVAL HISTORY: This patient presented with hematuria from left ureteral stone. Urine is actually quite cleaned up. Patient's appetite is better. Patient actually likes the hospital food. Up to the bathroom. Daughters are all in the room. Review of systems done for constitutional, cardiovascular, GI, pulmonary; relevant findings as above. Current medications are reviewed. Additional review of systems, patient having dribbling of urine and has been retaining urine of over 400 mL. Straight cath had to be done. On examination, temperature 97.6, pulse 71, respiration 16, blood pressure 104/73, pulse ox 97% on room air. GENERAL APPEARANCE: Lying in bed, comfortable. EYES: Pupils equal. Conjunctivae pale. NECK: JVD not raised. Mass not palpable. RESPIRATORY: Effort normal. LUNGS: Decreased breath sounds. CARDIOVASCULAR: First and second sounds normal. No edema. ABDOMEN: Soft, tender, liver and spleen not palpable. PSYCHIATRY: Awake, answering questions. INVESTIGATIONS: White count 5.6. Urine culture negative. CT scan of the chest, abdomen and pelvis showing enlarged prostate, gallstones. ASSESSMENT: 1. Hematuria from left ureteral stone causing left hydronephrosis with clinical improvement. Patient's lower abdominal pain and urine is actually clearing up. 2. Coronary artery disease with prior history of stent and coronary artery bypass grafting. 3. Gallstones asymptomatic. 4. Benign prostatic hypertrophy causing urine outflow obstruction with overflow and incontinence. 5. Alzheimer's dementia, late onset, no evidence of psychosis. 6. Hyperlipidemia. 7. Essential hypertension. 8. Chronic idiopathic thrombocytopenic purpura. 9. Troponin leak. 10. Weight loss, loss of appetite per family. Patient is actually really enjoying the hospital food. PLAN: Patient has no obvious any findings of malignancy. Hematuria is actually improved. The patient really enjoying his food, probably will need some more food supplement. For bladder outflow obstruction will start the patient on Flomax and straight catheterization. Looking at patient going back to home tomorrow.
[2016-12-04] MEDS: DRONABINOL 2.5 MG CAP PO SCH (09:39)
[2016-12-04] MEDS: DONEPEZIL 10 MG TAB PO SCH (09:40)
[2016-12-04] MEDS: CHOLECALCIFEROL 1,000 UNIT TAB PO SCH (09:40)
[2016-12-04] MEDS: ISOSORBIDE MONONITRATE ER 60 MG TAB.ER.24H PO SCH (09:40)
[2016-12-04] MEDS: PANTOPRAZOLE 40 MG TABLET PO SCH (09:40)
[2016-12-04 12:57] VITALS: BP 134/73; PULSE 81; TEMP 98.2
--- NOTE | 2016-12-04 13:18 | FL ---
EXAMINATION TYPE: FL barium swallow w video DATE OF EXAM: 12/04/2016 12:35 PM COMPARISON: NONE HISTORY: Aspiration difficulty swallowing bedside TECHNIQUE: Fluoroscopy. FINDINGS: Fluoroscopic guidance was provided for the procedure performed in conjunction with the [facility] pathology department. Please see complete report forthcoming from the Speech Pathology departmen t. Various consistencies from thin liquid to solids were administered. There was aspiration with thin liquids. Penetration was evident with thin liquids and nectar thick li quids Mild pooling was observed in the vallecula. There was normal propulsion of the bolus. IMPRESSION: 1. Penetration and aspiration with thin liquids. Some transient penetration with nectar thick liquids may be present.
[2016-12-04 15:09] VITALS: BMI 24.0
--- NOTE | 2016-12-04 22:52 | DS ---
DATE OF ADMISSION: 11/30/2016 DATE OF DISCHARGE: 12/04/2016 FINAL DIAGNOSES: 1. Acute hematuria from left ureteral stone causing left hydronephrosis. 2. Coronary artery disease with prior history of stent and coronary artery bypass. 3. Gallstones, asymptomatic. 4. Benign prostatic hypertrophy causing urinary outflow obstruction with overflow incontinence. 5. Acute urinary tract infection, present at admission. 6. Alzheimer dementia, late onset, with no evidence of psychosis. 7. Hyperlipidemia. 8. Essential hypertension. 9. Chronic idiopathic thrombocytopenic purpura. 10. Troponin leak, hemodynamic mismatch. No chest pain. 11. Moderate dysphagia to thin liquids per modified barium swallow. HOSPITAL COURSE: This patient was brought in with hematuria, found to have left ureteral stone, hydronephrosis, which actually completely resolved. Also had UTI for which patient was given antibiotics. The patient also having postvoid residuals greater than 300. Flomax was started. Patient had the Gallegos catheter in. he is due to see Dr. Babin as an outpatient. Will follow up at the same time. Patient had a CT scan of the abdomen, chest and pelvis as a workup for malignancy. Nothing really was found. Patient does state at least on a couple of occasions that he really likes hospital food more so than his home food, whatever that was worth. CONSULTATION: Dr. Babin from urology, Dr. Marianna Foley from GI because of concern about questionable GI bleed, but none was witnessed here. He will follow up as an outpatient. On exam, lungs are clear. CARDIOVASCULAR: First and second seconds are normal. Patient is able to answer simple questions. Patient's hemoglobin on discharge was 12. Urine culture is unremarkable. DISCHARGE MEDICATIONS: 1. Seroquel 25 mg p.o. q.h.s. 2. Vitamin D3 1000 units p.o. daily. 3. Marinol 2.5 p.o. b.i.d. 4. Imdur ER 60 mg p.o. daily. 5. Zocor 20 mg p.o. q.h.s. 6. Aspirin 81 mg daily. 7. Aricept 10 mg p.o. q.h.s. 8. Levaquin 200 mg daily for 7 days. 9. Protonix 40 mg with breakfast. 10. Flomax 0.4 mg p.o. q.h.s. Follow up with Dr. Powell on 12/12/2016. Follow up with Dr. Babin on 12/11/2016. Follow up with Dr. Marianna Foley on 11/18/2016. Discharge planning more than 35 minutes. DIET: Soft with nectar thickened liquids. Avoid thin liquids.
[2016-12-05] MEDS ORDERED: LEVOFLOXACIN 250MG-D5W PMX 250 MG in DEXTROSE/WATER 1 50ML.BAG IVPB SCH (17:00)
== END 2016-12-04 16:43 | disposition home health service (06) | DRG 690 ==
LOC: EC 13:02 → 6SEL 16:33 → 5MS5E 12-02 08:41
PROVIDERS: ADMIT Hospitalist; ATTEND Hospitalist
DX: N13.6 Pyonephrosis (principal); D69.3 Immune thrombocytopenic purpura; I11.0 Hypertensive heart disease with heart failure; I50.9 Heart failure, unspecified; R13.10 Dysphagia, unspecified; N28.1 Cyst of kidney, acquired; F02.80 Dementia in other diseases classified elsewhere, unspecified severity, without behavioral disturbance, psychotic disturbance, mood disturbance, and anxiety; G30.1 Alzheimer's disease with late onset; E11.9 Type 2 diabetes mellitus without complications; I25.10 Atherosclerotic heart disease of native coronary artery without angina pectoris; J02.9 Acute pharyngitis, unspecified; K80.20 Calculus of gallbladder without cholecystitis without obstruction; N40.1 Benign prostatic hyperplasia with lower urinary tract symptoms; N39.490 Overflow incontinence; E78.5 Hyperlipidemia, unspecified; Z85.818 Personal history of malignant neoplasm of other sites of lip, oral cavity, and pharynx; Z92.3 Personal history of irradiation; Z95.5 Presence of coronary angioplasty implant and graft; Z95.1 Presence of aortocoronary bypass graft; Z79.82 Long term (current) use of aspirin; Z79.899 Other long term (current) drug therapy
CPT/HCPCS: 36415; 71260; 74000; 74176; 74177; 74230; 76770; 80053; 81001; 82550; 82553; 83605; 84484; 85025; 85730; 86850; 86900; 86901; 87086; 93005; 96360; 99285

== ENCOUNTER 2017-01-23 06:42 | Day surgery (SDC) | payer MEDICARE, BC ==
[2017-01-21 11:41] VITALS: BMI 17.7
[~2017-01-23 06:42] MED LIST: LACTATED RINGERS 1,000 ML IV SCH
[2017-01-23 07:06] VITALS: TEMP 97.9
[2017-01-23] MEDS ORDERED: LACTATED RINGERS 1,000 ML IV ONE ×2 (07:15)
[2017-01-23 07:21] LABS: Glucose,Whole Blood 58 mg/dL (75-99)
[2017-01-23] MEDS ORDERED: DEXTROSE 50%-WATER 50 ML SYRINGE IVP ONE (07:25)
[2017-01-23] MEDS ORDERED: PROPOFOL 10 MG/ML 20 ML VIAL IV ONE (07:30)
--- NOTE | 2017-01-23 07:59 | P.PCN ---
Date of Procedure: 01/23/17 Postoperative Diagnosis: BRIEF HISTORY: Patient is a 81-year-old, pleasant, male, scheduled for an upper endoscopy as a part of evaluation of progressive weight loss and early satiety for the last several months duration. He denies any abdominal pain, nausea vomiting. PROCEDURE PERFORMED: Esophagogastroduodenoscopy with biopsy. PREOPERATIVE DIAGNOSIS: Early satiety and progressive weight loss of 6 months duration. IV sedation per anesthesia. PROCEDURE: After informed consent was obtained, the patient was brought into the endoscopy unit. IV conscious sedation was administered by Anesthesia under continuous monitoring. Initially the Olympus GIF-140 video endoscope was inserted into the mouth. Esophagus intubated without any difficulty. It was gradually advanced into the stomach and duodenum and carefully examined. The bulb and the second part of the duodenum appeared normal. Biopsies were done from this area to rule out celiac disease. The scope at this time was withdrawn to the stomach, adequately insufflated with air, and upon careful examination, mucosa of the antrum, body, cardia and the fundus had multiple small polyps throughout the stomach consistent with nodular gastritis and multiple biopsies were done from this areas.. The scope was then withdrawn into the esophagus. The GE junction was located at 39 cm from the incisors. The esophagus appeared normal. There were no erosions or ulcerations seen and the patient tolerated the procedure well. IMPRESSION: 1. Severe nodular gastritis involving the body, fundus and antrum of the stomach. Status post multiple biopsies. 2. No evidence of esophagitis or peptic. RECOMMENDATIONS: The findings of this examination were discussed with the patient as well as his family. He was advised to follow with the biopsy results.
[2017-01-23 08:15] LABS: Glucose,Whole Blood 114 mg/dL (75-99)
[2017-01-23 08:39] VITALS: RESP 18
[2017-01-23 09:19] VITALS: BP 118/80; PULSE 77
== END 2017-01-23 09:31 | disposition home or self-care (01) ==
LOC: ORWHC2ENDO 06:42
PROVIDERS: ATTEND Internal Medicine Gastroenterology
DX: K29.00 Acute gastritis without bleeding (principal); R63.4 Abnormal weight loss; K21.9 Gastro-esophageal reflux disease without esophagitis; Z79.82 Long term (current) use of aspirin; Z79.899 Other long term (current) drug therapy
CPT/HCPCS: 88305; 88342; 43239; J2704; 80053; 85025

== ENCOUNTER 2017-01-30 11:36 | Inpatient (IN) | payer MEDICARE, BC ==
[2017-01-30] MEDS ORDERED: SODIUM CHLORIDE 0.9% 1,000 ML IV ONE (11:57)
[2017-01-30] MEDS ORDERED: MORPHINE SULFATE 4 MG/ML SYRINGE IVP STA (12:02)
--- NOTE | 2017-01-30 12:04 | ED ---
General Adult HPI - General Chief complaint: Weakness Stated complaint: alter mental status Time Seen by Provider: 01/30/17 11:47 Source: patient, family, EMS Mode of arrival: EMS - History of Present Illness Initial comments: 81-year-old male presenting for generalized weakness and altered mental status. Grandson is present with patient and states that he lives at home. He does have history of dementia. Grandson states that he has had a poor appetite for the past few months. He appears to be losing weight. Over the past few days he 's become more confused than his baseline. Patient is also complaining of some low back pain. Grandson denies any known falls or injury. He has not had any fevers or chills. The patient denies any chest pain or shortness of breath. - Related Data Home Medications Medication Instructions Recorded Confirmed Megestrol [Megace] 1 dose PO BID 01/21/17 01/30/17 Nitroglycerin Sl Tabs [Nitrostat] 0.4 mg SUBLINGUAL Q5M PRN 01/21/17 01/30/17 Acetaminophen-Codeine 300-30mg 1 tab PO Q4H PRN 01/30/17 01/30/17 [Tylenol #3] Chlorhexidine Gluconate [Peridex] 15 ml PO BID 01/30/17 01/30/17 Nystatin 100,000 Unit/ml Susp 4 ml PO BID 01/30/17 01/30/17 [Mycostatin Oral Susp] Previous Rx's Medication Instructions Recorded Aspirin 81 mg PO DAILY #1 chewable 12/04/16 Donepezil [Aricept] 10 mg PO HS #0 12/04/16 Pantoprazole [Protonix] 40 mg PO AC-BRKFST #30 tablet. 12/04/16 Allergies Allergy/AdvReac Type Severity Reaction Status Date / Time No Known Allergies Allergy Verified 01/30/17 11:57 Review of Systems ROS Statement: Those systems with pertinent positive or pertinent negative responses have been documented in the HPI. Constitutional: No fevers. No chills. Decreased appetite. Eyes: No visual changes. No eye pain. No sensitivity to light. HENT: No sinus pressure. No ear pain. No hearing changes. No epistaxis. No sore throat. Respiratory: No cough. No SOB. No wheezing. Cardiovascular: No chest pain. No palpitations. No lower extremity edema. Abdomen: No abdominal pain. No nausea. No vomiting. No diarrhea. Genitourinary: No dysuria. No hematuria. No difficulty urinating. No flank pain. Musculoskeletal: No injury. Positive back pain. No myalgias. Skin: No rash. No lesions. No lacerations. Neuro: No gross strength deficits. No LOC. No seizures. No headache. Positive generalized weakness Psych: No confusion. No memory changes. No anxiety/depression. ROS Other: All systems not noted in ROS Statement are negative. 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 , HAVING DIFFICULTY SWALLOWING- EATS SOFT FOODS AND USES THICKENER FOR LIQUIDS ., CHRONIC RENAL DX, STATES NO LONGER DIABETIC. THROMBOCYTOPENIA, BPH, KIDNEY STONE., SOME DEMENTIA. , SPEAKS SOME ITALIAN BUT PREFERS PORTUGUESE., DAUGHTER DANNY BONILLA HAS P.O.A. History of Any Multi-Drug Resistant Organisms: None Reported Past Surgical History: Coronary Bypass/CABG, Heart Catheterization With Stent Additional Past Surgical History / Comment(s): CATARACT REMOVAL 2013. CABG IN APRIL 1995. Past Anesthesia/Blood Transfusion Reactions: No Reported Reaction Additional Past Anesthesia/Blood Transfusion Reaction / Comment(s): NEVER RECEIVED BLOOD. Date of Last Stent Placement:: 2009 Past Psychological History: No Psychological Hx Reported Additional Psychological History / Comment(s): one of his daughters lives w/him Smoking Status: Current some day smoker Past Alcohol Use History: None Reported Additional Past Alcohol Use History / Comment(s): OCCASIONAL CIGAR. Past Drug Use History: None Reported - Past Family History Father Family Medical History: No Reported History Additional Family Medical History / Comment(s): FATHER IN HIS 90'S Mother Family Medical History: Dementia Additional Family Medical History / Comment(s): MOTHER IN HER 80'S General Exam - General Exam Comments Initial Comments: General: Awake and Alert. No acute distress. Appears cachectic. Eyes: IGOR, EOM intact. No nystagmus. No scleral icterus. HENT: Atraumatic, normocephalic. Mucous membranes moist. Trachea midline. Halitosis. Neck: The neck is supple, there is no tenderness or JVD. Cardiovascular: Regular rate and rhythm. No murmur, rub, or gallop is appreciated. Distal pulses intact. Respiratory: Lungs are clear to auscultation bilaterally. No wheezes, rales, rhonchi. No respiratory distress. Gastrointestinal: Soft, Nontender. No rebound or guarding. Non-distended. No masses or organomegaly noted. No CVA tenderness. Musculoskeletal: Mild lower back tenderness. Normal ROM. No gross deformity. No strength deficits. Neurological: A&Ox2 appears confused. CN II-XII grossly intact, There are no obvious motor or sensory deficits. Coordination appears grossly intact. Speech is normal. Skin: Skin is warm and dry and no rashes or lesions are noted. Psychiatric: Cooperative, appropriate mood & affect, normal judgment. Course Vital Signs 01/30/17 01/30/17 01/30/17 11:37 13:30 14:55 Temperature 97.0 F L 97.8 F Pulse Rate 16 L 70 77 Respiratory 16 18 16 Rate Blood Pressure 127/82 117/68 117/82 O2 Sat by Pulse 100 98 98 Oximetry 01/30/17 16:41 Temperature 97.8 F Pulse Rate 78 Respiratory 20 Rate Blood Pressure 112/68 O2 Sat by Pulse 98 Oximetry EKG Findings - EKG Comments: EKG Findings:: EKG 14:33. Sinus rhythm. Rate 76. NJ 176. QRS 100. QT/QTC 374/420. Normal axis. Nonspecific ST and T-wave changes. no STEMI. Abnormal EKG. Medical Decision Making - Medical Decision Making 81-year-old male with history of dementia and failure to thrive presenting for altered mental status. Patient appears cachectic on initial exam and appears dehydrated. He has had poor by mouth intake per family past several months. Lab work showing evidence of dehydration. Significant hypernatremia, likely secondary to hypovolemia. He is on IV fluids in the ED. Initial troponin came back elevated. Patient denies any chest pain. Was given an aspirin but will defer heparin therapy at this time pending trending of troponins. CXR no acute process Updated patient and family and plan for admission. Daughter Gissel present at bedside. Discussed CODE STATUS and comfort care with her. Discussed likely poor prognosis due to advanced dementia and poor nutritional status. She states that they're familiar with end-of-life care as her mother went through this 3 years ago with similar dementia issues. She states the patient is DO NOT RESUSCITATE/DO NOT INTUBATE at this time. However she would like to maintain current therapies. She will discuss with family for further limitations of care. I spoke with Dr. Watts, agrees with plan for admission. - Lab Data Result diagrams: 01/30/17 12:55 01/30/17 12:55 Lab Results 01/30/17 01/30/17 01/30/17 Range/Units 12:55 12:55 13:00 WBC 9.0 (3.8-10.6) k/uL RBC 5.00 (4.30-5.90) m/uL Hgb 13.7 (13.0-17.5) gm/dL Hct 45.1 (39.0-53.0) % MCV 90.3 (80.0-100.0) fL MCH 27.4 (25.0-35.0) pg MCHC 30.3 L (31.0-37.0) g/dL RDW 15.4 (11.5-15.5) % Plt Count 139 L (150-450) k/uL Neutrophils % 87 % Lymphocytes % 7 % Monocytes % 5 % Eosinophils % 0 % Basophils % 0 % Neutrophils # 7.8 H (1.3-7.7) k/uL Lymphocytes # 0.6 L (1.0-4.8) k/uL Monocytes # 0.4 (0-1.0) k/uL Eosinophils # 0.0 (0-0.7) k/uL Basophils # 0.0 (0-0.2) k/uL Hypochromasia Slight Sodium 156 H (137-145) mmol/L Potassium 4.2 (3.5-5.1) mmol/L Chloride 118 H (98-107) mmol/L Carbon Dioxide 23 (22-30) mmol/L Anion Gap 15 mmol/L BUN 42 H (9-20) mg/dL Creatinine 1.00 (0.66-1.25) mg/dL Est GFR (MDRD) Af Amer >60 (>60 ml/min/1.73 sqM) Est GFR (MDRD) Non-Af >60 (>60 ml/min/1.73 sqM) Glucose 146 H (74-99) mg/dL Plasma Lactic Acid Alexandre 2.0 (0.7-2.0) mmol/L Calcium 11.5 H (8.4-10.2) mg/dL Magnesium 2.2 (1.6-2.3) mg/dL Total Bilirubin 1.3 (0.2-1.3) mg/dL AST 19 (17-59) U/L ALT 22 (21-72) U/L Alkaline Phosphatase 84 (38-126) U/L Troponin I (0.000-0.034) ng/mL Total Protein 6.8 (6.3-8.2) g/dL Albumin 3.4 L (3.5-5.0) g/dL 01/30/17 Range/Units 13:00 WBC (3.8-10.6) k/uL RBC (4.30-5.90) m/uL Hgb (13.0-17.5) gm/dL Hct (39.0-53.0) % MCV (80.0-100.0) fL MCH (25.0-35.0) pg MCHC (31.0-37.0) g/dL RDW (11.5-15.5) % Plt Count (150-450) k/uL Neutrophils % % Lymphocytes % % Monocytes % % Eosinophils % % Basophils % % Neutrophils # (1.3-7.7) k/uL Lymphocytes # (1.0-4.8) k/uL Monocytes # (0-1.0) k/uL Eosinophils # (0-0.7) k/uL Basophils # (0-0.2) k/uL Hypochromasia Sodium (137-145) mmol/L Potassium (3.5-5.1) mmol/L Chloride (98-107) mmol/L Carbon Dioxide (22-30) mmol/L Anion Gap mmol/L BUN (9-20) mg/dL Creatinine (0.66-1.25) mg/dL Est GFR (MDRD) Af Amer (>60 ml/min/1.73 sqM) Est GFR (MDRD) Non-Af (>60 ml/min/1.73 sqM) Glucose (74-99) mg/dL Plasma Lactic Acid Alexandre (0.7-2.0) mmol/L Calcium (8.4-10.2) mg/dL Magnesium (1.6-2.3) mg/dL Total Bilirubin (0.2-1.3) mg/dL AST (17-59) U/L ALT (21-72) U/L Alkaline Phosphatase (38-126) U/L Troponin I 0.336 H* (0.000-0.034) ng/mL Total Protein (6.3-8.2) g/dL Albumin (3.5-5.0) g/dL - EKG Data -: EKG Interpreted by Me EKG shows normal: sinus rhythm Rate: normal - Radiology Data Radiology results: report reviewed, image reviewed Disposition Clinical Impression: Malnutrition, Failure to thrive in adult, Dementia, Hypernatremia, Hypovolemia , Elevated troponin, Altered mental status Disposition: ADMITTED IP TO THIS [facility] Condition: Stable Decision to Admit Reason: Admit from EC
--- NOTE | 2017-01-30 12:48 | XR ---
EXAMINATION TYPE: XR chest 2V DATE OF EXAM: 01/30/2017 12:34 PM COMPARISON: Prior chest x-ray September 13, 2014. Recent CT cap December 02, 2016. HISTORY: Generalized weakness and cough. TECHNIQUE: Frontal and lateral views of the chest are obtained. FINDINGS: Post CABG changes with mediastinal clips and sternal wires is redemonstrated. There is back ground of chronic emphysematous change There is no new focal air space opacity, pleural effusion, or pneumothorax seen. The cardiac silhouette size is within normal limits. Coronary stents are felt pre sent. The osseous structures are intact. IMPRESSION: Chronic emphysematous change without acute pulmonary process currently.
[2017-01-30 13:15] LABS: ALT 22 U/L (21-72); AST 19 U/L (17-59); Alkaline Phosphatase 84 U/L (38-126); Anion Gap 15 mmol/L; Basophils % (A) 0 %; Blood Urea Nitrogen 42 mg/dL (9-20); CH 27.6; CHCM 30.7; Calcium 11.5 mg/dL (8.4-10.2); Carbon Dioxide 23 mmol/L (22-30); Chloride 118 mmol/L (98-107); Eosinophils % (A) 0 %; Glucose 146 mg/dL (74-99); HCT 45.1 % (39.0-53.0); HDW 2.33; HGB 13.7 gm/dL (13.0-17.5); Hypochromasia Slight; Luc # (Auto) 0.11; Luc % (Auto) 1; Lymphocytes # (A) 0.6 k/uL (1.0-4.8); Lymphocytes % (A) 7 %; MCH 27.4 pg (25.0-35.0); MCHC 30.3 g/dL (31.0-37.0); MCV 90.3 fL (80.0-100.0); Magnesium 2.2 mg/dL (1.6-2.3); Mean Platelet Volume 8.7; Monocytes # (A) 0.4 k/uL (0-1.0); Monocytes % (A) 5 %; Neutrophils # (A) 7.8 k/uL (1.3-7.7); Neutrophils % (A) 87 %; Non-African American GFR(MDRD) >60 (>60 ml/min/1.73 sqM); Potassium 4.2 mmol/L (3.5-5.1); RDW 15.4 % (11.5-15.5); Sodium 156 mmol/L (137-145); Total Bilirubin 1.3 mg/dL (0.2-1.3); Total Protein 6.8 g/dL (6.3-8.2); WBC (Perox) 9.23
[2017-01-30] MEDS ORDERED: ASPIRIN 81 MG CHEW PO STA (13:56)
[2017-01-30] MEDS ORDERED: ACETAMINOPHEN TAB 325 MG TAB PO PRN (14:01)
[2017-01-30] MEDS ORDERED: NALOXONE 0.4 MG/ML 1 ML VIAL IV PRN (14:01)
[2017-01-30] MEDS ORDERED: ONDANSETRON 4 MG/2 ML VIAL IVP PRN (14:01)
[2017-01-30] MEDS: SODIUM CHLORIDE 0.9% 1,000 ML IV SCH (14:30)
[2017-01-30] MEDS ORDERED: NITROGLYCERIN SL TABS 0.4 MG TAB SUBLINGUAL PRN (17:54)
[2017-01-30] MEDS ORDERED: Acetaminophen-Codeine 300-30mg TAB PO PRN (17:54)
[2017-01-30 18:23] LABS: Glucose,Whole Blood 103 mg/dL (75-99)
[2017-01-30 19:37] LABS: Creatine Kinase 28 U/L (55-170)
[2017-01-30] MEDS ORDERED: DONEPEZIL 10 MG TAB PO SCH (21:00)
[2017-01-30 21:07] LABS: Glucose,Whole Blood 88 mg/dL (75-99)
[2017-01-30] MEDS: HEPARIN SODIUM,PORCINE 5,000 UNIT/ML 1 ML VIAL SQ SCH (22:24)
[2017-01-30] MEDS: CHLORHEXIDINE GLUCONATE 15 ML CUP MUCOUS MEM SCH (22:25)
[2017-01-30] MEDS: FAMOTIDINE 20 MG TAB PO SCH (22:25)
[2017-01-30] MEDS: NYSTATIN 100,000 UNIT/ML SUSP 500,000 UNIT/5 ML CUP PO SCH (22:26)
[2017-01-30] MEDS: MEGESTROL 400 MG/10 ML CUP PO SCH (22:26)
[2017-01-31 00:56] VITALS: RESP 16
[2017-01-31] MEDS: SODIUM CHLORIDE 0.9% 1,000 ML IV SCH ×2 (05:59→16:56)
[2017-01-31 06:17] LABS: Basophils % (A) 0 %; CH 27.1; Eosinophils % (A) 1 %; HCT 40.1 % (39.0-53.0); HDW 2.27; HGB 11.6 gm/dL (13.0-17.5); Hypochromasia Marked; Luc # (Auto) 0.07; Luc % (Auto) 1; Lymphocytes # (A) 0.4 k/uL (1.0-4.8); Lymphocytes % (A) 5 %; MCH 27.2 pg (25.0-35.0); MCHC 28.9 g/dL (31.0-37.0); Mean Platelet Volume 7.5; Monocytes # (A) 0.3 k/uL (0-1.0); Monocytes % (A) 5 %; Neutrophils # (A) 6.7 k/uL (1.3-7.7); Neutrophils % (A) 89 %; RBC 4.26 m/uL (4.30-5.90); RDW 15.4 % (11.5-15.5); WBC 7.5 k/uL (3.8-10.6); WBC (Perox) 7.61
[2017-01-31 06:28] LABS: Anion Gap 11 mmol/L; Blood Urea Nitrogen 34 mg/dL (9-20); Calcium 10.7 mg/dL (8.4-10.2); Carbon Dioxide 21 mmol/L (22-30); Glucose 97 mg/dL (74-99); Non-African American GFR(MDRD) >60 (>60 ml/min/1.73 sqM); Potassium 3.8 mmol/L (3.5-5.1); Sodium 155 mmol/L (137-145)
[2017-01-31 06:31] LABS: Chloride 123 mmol/L (98-107)
[2017-01-31 06:31] LABS: Glucose,Whole Blood 80 mg/dL (75-99)
[2017-01-31] MEDS: PANTOPRAZOLE 40 MG TABLET PO SCH (06:34)
--- NOTE | 2017-01-31 07:31 | HP ---
DATE OF ADMISSION: 01/30/2017 PRESENTING COMPLAINT: Decreased oral intake. HISTORY OF PRESENTING COMPLAINT: This is an 81-year-old patient with a rather extensive medical history. Patient was here in November of this year. Patient has a known history of stable chronic conditions including coronary artery disease, gallstones, BPH, Alzheimer's dementia, hyperlipidemia, hypertension, low platelets. Patient also has got chronic dysphagia to thin liquids. The patient was brought in, has continued to deteriorate. Continues to lose weight. ( ) dementia is getting much worse. Overall condition has deteriorated. Patient's grandson is at the bedside. Patient can only answer some simple questions. Most of the history is obtained from the grandson who is at the bedside. REVIEW OF SYSTEMS: CONSTITUTIONAL: Weak, tired, loss of appetite. HEENT: Decreased hearing. RESPIRATORY: None. CARDIOVASCULAR: None. GASTROINTESTINAL: None. GENITOURINARY: None. MUSCULOSKELETAL: Pain in the joints. DERMATOLOGICAL: None. HEMATOLOGICAL: None. LYMPHATICS: None. PSYCHIATRY: Forgetful. NEUROLOGICAL: Generalized weakness. Past history of coronary artery disease with stent and bypass, gallstones, BPH, Alzheimer's dementia, hyperlipidemia, hypertension, low platelets, moderate dysphagia, kidney stones. PAST SURGICAL HISTORY: Coronary artery bypass, cardiac cath with stent, cataract removal. SOCIAL HISTORY: The patient lives with one of his daughters. He had been a smoker. Patient's daughter, Kim Baumann, has Power of School Year Nanny. FAMILY HISTORY: Patient cannot remember. HOME MEDICATIONS: 1. Protonix 40 mg with breakfast. 2. Nystatin 4 mL p.o. b.i.d. 3. Nitrostat 0.4 sublingual q.5 p.r.n. 4. Megace 1 dose p.o. b.i.d. 5. Aricept 10 mg p.o. q.h.s. 6. Peridex 15 mL p.o. b.i.d. 7. Aspirin 81 mg daily. 8. Tylenol No. 3 q.4 p.r.n. ALLERGIES: None. On examination, temperature 97, pulse 70, respiration 18, blood pressure 117/68, pulse ox 98% on 2 L. GENERAL APPEARANCE: Very thin built. BMI 17.2, emaciated with loss of fat and prominent bony prominences. EYES: Pupils equal. Conjunctivae pale. HEENT: External appearance of nose and ears normal. Oral cavity with dry mucous membrane. NECK: JVD not raised. Mass not palpable. RESPIRATORY: Effort normal. LUNGS: Slightly decreased breath sounds. CARDIOVASCULAR: First and second sounds normal. No edema. ABDOMEN: Severely scaphoid. Liver and spleen not palpable. LYMPHATIC: No lymph node palpable in neck or axillae. PSYCHIATRY: Patient can state his name and answer simple questions. NEUROLOGICAL: Pupils equal. Cranial nerves grossly intact. Power and sensation moving all 4 limbs. MUSCULOSKELETAL: Diffuse severe wasting of the muscles. INVESTIGATIONS: White count 9, hemoglobin 13.7. Sodium 156. BUN 42, creatinine 1.0. Troponin 0.336, 0.290. ASSESSMENT: 1. Severe hypernatremia from poor oral intake/free water deficit. 2. Troponin leak from hemodynamic mismatch, not of any significance at this point. 3. Severe protein calorie malnutrition with very poor oral intake. 4. Coronary artery disease with prior history of stent and coronary artery bypass. 5. Gallstones, asymptomatic. 6. Benign prostatic hypertrophy with causing chronic urinary outflow obstruction. 7. Alzheimer's dementia, late onset, severe. 8. Essential hypertension, history of. 9. Chronic idiopathic thrombocytopenic purpura. 10. Chronic dysphagia to thin liquids per modified barium swallow previously. PLAN: Patient's prognosis is very poor. Will hydrate the patient. I told the grandson to call in the family members for a family meeting tomorrow and discuss quality of life and advanced care planning. In the meantime, continue current medication and treatment plan. Will follow.
[2017-01-31] MEDS: MEGESTROL 400 MG/10 ML CUP PO SCH ×2 (09:09→21:45)
[2017-01-31] MEDS: FAMOTIDINE 20 MG TAB PO SCH (09:09)
[2017-01-31] MEDS: CHLORHEXIDINE GLUCONATE 15 ML CUP MUCOUS MEM SCH ×2 (09:09→21:44)
[2017-01-31] MEDS: ASPIRIN 81 MG CHEW PO SCH (09:09)
[2017-01-31] MEDS: HEPARIN SODIUM,PORCINE 5,000 UNIT/ML 1 ML VIAL SQ SCH ×2 (09:10→21:45)
[2017-01-31] MEDS: NYSTATIN 100,000 UNIT/ML SUSP 500,000 UNIT/5 ML CUP PO SCH ×2 (09:10→21:45)
[2017-01-31 10:36] VITALS: BMI 21.7
[2017-01-31 12:06] LABS: Glucose,Whole Blood 103 mg/dL (75-99)
[2017-01-31 16:44] LABS: Glucose,Whole Blood 88 mg/dL (75-99)
[2017-01-31] MEDS: MORPHINE SULFATE 4 MG/ML SYRINGE IV PRN ×2 (17:51→21:44)
[2017-01-31] MEDS: SODIUM CHLORIDE 0.45% 1,000 ML IV SCH (17:58)
[2017-01-31 20:41] LABS: Glucose,Whole Blood 79 mg/dL (75-99)
[2017-02-01] MEDS: MORPHINE SULFATE 4 MG/ML SYRINGE IV PRN ×4 (02:08→15:56)
[2017-02-01] MEDS: SODIUM CHLORIDE 0.45% 1,000 ML IV SCH ×2 (02:09→09:31)
--- NOTE | 2017-02-01 07:38 | PN ---
DATE OF SERVICE: 01/31/2017 PRESENTING COMPLAINT: Doing poorly. INTERVAL HISTORY: This patient with multiple medical problems doing poorly, emaciated, malnutrition, has not really taken eating much, eating very little. Able to answer simple questions. Review of systems done for constitutional, cardiovascular, GI, pulmonary; relevant findings as above. Current medications are reviewed with IV fluids. On examination, temperature 97.5, pulse 87, respiration 16, blood pressure 115/70, pulse ox 97% on 2 liters. GENERAL APPEARANCE: Lying in bed, tired -appearing but arousable. EYES: Conjunctivae pale. NECK: JVD not raised. Mass not palpable. RESPIRATORY: Effort normal. LUNGS: Diminished breath sounds. CARDIOVASCULAR: First and second sounds normal. No edema. ABDOMEN: Severely scaphoid. Liver and spleen not palpable. MUSCULOSKELETAL: Severe wasting of the muscles. PSYCHIATRY: Patient is able answering some simple questions. INVESTIGATIONS: Sodium 155, chloride 123, white count 7.5. ASSESSMENT: 1. Severe hypernatremia from poor oral intake, free water deficit, slow to respond. 2. Troponin leak form hemodynamic mismatch. 3. Severe protein calorie malnutrition with very poor oral intake and severe wasting of muscles. 4. Coronary artery disease with prior history of coronary artery bypass. 5. Gallstones asymptomatic. 6. Benign prostatic hypertrophy, causing chronic urinary outflow obstruction. 7. Alzheimer's dementia, late onset type, severe. 8. Essential hypertension. 9. Chronic idiopathic thrombocytopenic purpura. 10. Chronic dysphagia with thin liquids, per modified barium swallow previously. PLAN: Prognosis remains poor. Continue current medication and treatment plan. I will call for a family meeting. I saw the patient earlier today. ADVANCED CARE PLANNING: I had a talk with the patient's 3 daughters and other family members sitting at the bedside. Discussed overall poor prognosis. Given extremely emaciation, poor oral intake and no feeding tube, prognosis is guarded. I did talk about various things including I discussed about pain control, secretions, comfort measures. I also talked about disposition. They want hospice out of [place]. They expressed that they wish to transfer the patient home. They also talked about how long the patient will be alive. I said this entirely depends on God, but the way things are looking I do not expect him to be too long. Several questions were answered. Patient is on supportive medications; therefore will be discontinued. This was discussed additionally for about 40 minutes in addition to the progress note.
[2017-02-01 08:29] VITALS: BP 111/69; PULSE 67; TEMP 98
[2017-02-01] MEDS: PANTOPRAZOLE 40 MG TABLET PO SCH (09:21)
[2017-02-01] MEDS: MEGESTROL 400 MG/10 ML CUP PO SCH (09:22)
[2017-02-01] MEDS: ASPIRIN 81 MG CHEW PO SCH (09:22)
[2017-02-01] MEDS: CHLORHEXIDINE GLUCONATE 15 ML CUP MUCOUS MEM SCH (09:22)
[2017-02-01] MEDS: NYSTATIN 100,000 UNIT/ML SUSP 500,000 UNIT/5 ML CUP PO SCH (09:23)
[2017-02-01] MEDS: HEPARIN SODIUM,PORCINE 5,000 UNIT/ML 1 ML VIAL SQ SCH (09:23)
--- NOTE | 2017-02-01 16:11 | DS ---
DATE OF ADMISSION: 01/30/2017 DATE OF DISCHARGE: FINAL DIAGNOSES: 1. Severe hypernatremia from poor oral intake free water deficit, slow to respond. 2. Troponin leak from hemodynamic mismatch. 3. Severe protein calorie malnutrition poor oral intake and severe wasting of muscles. 4. Coronary artery disease with prior history of coronary artery bypass. 5. Gallstones asymptomatic. 6. Benign prostatic hypertrophy, causing chronic urinary outflow obstruction. 7. Alzheimer's dementia, late onset type, severe. 8. Essential hypertension. 9. Chronic idiopathic thrombocytopenic purpura. 10. Chronic dysphagia with thin liquids per modified barium swallow previously. HOSPITAL COURSE: This patient presented with failure to thrive, going downhill with electrolyte abnormalities. Oral intake has been very poor. Patient has been emaciated. After having a family meeting patient agreed with hospice. Today, patient's nephew is in the room. Some of the family was here. Arrangements are being arranged for his medications. I spoke to the pediatric social worker. Initially family wanted to take the patient home by car and then switched saying ambulance would be safer. On examination, able to answer some yes and no questions. Severe wasting of muscles. DISCHARGE MEDICATIONS: 1. Ativan 1 mg p.o. q.4. 2. Roxanol 20 mg/mL 5 mg p.o. q.4 p.r.n. for pain. 3. Scopolamine 1.5 mg patch every 72 hours for secretions. DISPOSITION: Home with hospice. Patient and family have chosen [facility]. Follow with Dr. Powell p.r.n. for hospice. Discharge planning more than 35 minutes.
== END 2017-02-01 17:50 | disposition hospice, home (50) | DRG 640 ==
LOC: EC 11:36 → 6SEL 14:01 → 5ONC 01-31 19:44
PROVIDERS: ADMIT Hospitalist; ATTEND Hospitalist
DX: E87.0 Hyperosmolality and hypernatremia (principal); E43 Unspecified severe protein-calorie malnutrition; E86.0 Dehydration; D69.3 Immune thrombocytopenic purpura; E11.9 Type 2 diabetes mellitus without complications; G30.9 Alzheimer's disease, unspecified; N13.8 Other obstructive and reflux uropathy; R13.10 Dysphagia, unspecified; R64 Cachexia; F02.80 Dementia in other diseases classified elsewhere, unspecified severity, without behavioral disturbance, psychotic disturbance, mood disturbance, and anxiety; K80.20 Calculus of gallbladder without cholecystitis without obstruction; E86.1 Hypovolemia; E78.5 Hyperlipidemia, unspecified; F17.200 Nicotine dependence, unspecified, uncomplicated; I10 Essential (primary) hypertension; I25.10 Atherosclerotic heart disease of native coronary artery without angina pectoris; K21.9 Gastro-esophageal reflux disease without esophagitis; N40.1 Benign prostatic hyperplasia with lower urinary tract symptoms; R62.7 Adult failure to thrive; Z66 Do not resuscitate; Z79.82 Long term (current) use of aspirin; Z79.899 Other long term (current) drug therapy; Z85.818 Personal history of malignant neoplasm of other sites of lip, oral cavity, and pharynx; Z87.442 Personal history of urinary calculi; Z95.1 Presence of aortocoronary bypass graft
CPT/HCPCS: 36415; 71020; 80048; 80053; 82550; 82553; 83605; 83735; 84484; 85025; 93005; 94760; 96361; 96374; 99285